=== PATIENT | female | born 1960 | race Caucasian/White ===

== ENCOUNTER → 2016-12-06 | Outpatient (CLI) | payer OTHER ==
[~2016-12-06] MED LIST: ALLOPURINOL300 MG PO; LEXAPRO20 MG PO; LOPRESSOR50 MG PO
== END | disposition home or self-care (01) ==
LOC: MAMMO 14:17
DX: Z12.31 Encounter for screening mammogram for malignant neoplasm of breast (principal)

== ENCOUNTER 2017-03-14 10:24 | Emergency (ER) | payer OTHER ==
[~2017-03-14] VITALS: Ht 177.8 cm; Wt 99.8 kg
[2017-03-14 10:33] VITALS: BP 143/70
[2017-03-14] MEDS ORDERED: SEPTDS PO (12:53)
== END 2017-03-14 13:53 | disposition home or self-care (01) ==
LOC: ED 10:24
DX: L03.116 Cellulitis of left lower limb (principal); F17.200 Nicotine dependence, unspecified, uncomplicated; F10.10 Alcohol abuse, uncomplicated; Z79.899 Other long term (current) drug therapy

== ENCOUNTER 2018-05-03 16:36 | Inpatient (IN) | payer OTHER ==
--- NOTE | ~2018-05-03 | EKG ---
[place], [place] ELECTROCARDIOGRAM REPORT NAME: CLIF AGEE UNIT #: [id number] ROOM: 407 DOCTOR: EPIPHANY DRAFT REPORT BIRTHDATE: [birth year] [facility] Test Date: 2018-05-03 Test Time: 16:40:59 Pat Name: CLIF AGEE Department: Room: 407 Gender: F Crnp: Erika Piedra : 1960 Requested By: KAMI VALVERDE DNP Order Number: [id number] Reading MD: Ezio Méndez MD Measurements Intervals [place] Rate: 140 P: -80 DE: 97 QRS: 55 QRSD: 94 T: -9 QT: 307 QTc: 469 Interpretive Statements Sinus or ectopic atrial tachycardia Repol abnrm suggests ischemia, inferior leads Borderline ST elevation, anterolateral leads Baseline wander in lead(s) III,aVF,V4,V5 Electronically Signed On 05-04-2018 8:44:26 PST by Ezio Méndez MD CM:EKGRPT:ELECTROCARDIOGRAM REPORT [id number] KAMI VALVERDE DNP EPIPHANY DRAFT REPORT KAMI VALVERDE DNP
--- NOTE | ~2018-05-03 | CON ---
[place], [place] REPORT OF CONSULTATION [id number] UN[facility] #: [id number] ROOM: 407 DOCTOR: HERI GRIJALVA MD BIRTHDATE: [birth year] DOS: 05/04/2018 HISTORY OF PRESENT ILLNESS: This is a 58-year-old -[place] woman with a history of essential hypertension, anxiety, gout and atrial fibrillation. In 2016, she had cryoablation done and had not had any symptoms until now. She has never had a heart attack, stroke, COPD, cancer, kidney problems, GERD or GI problems. She drinks socially, but does not use tobacco products and no illicit drugs. FAMILY HISTORY: Positive for coronary artery disease particularly in father. She was admitted to the hospital because of palpitations. She felt her heart was beating irregularly. She had little heartburn and had slight lightheadedness as well, but no chest pain, loss of consciousness, any swelling in the legs, orthopnea or neurological symptoms. MEDICATIONS: At home, allopurinol 300 daily, Lexapro 20 daily and metoprolol 50 mg b.i.d. PHYSICAL EXAMINATION: GENERAL: This revealed the patient is very pleasant, alert. She is tall, mildly overweight. No anemia, thyromegaly or finger clubbing. She was not jaundiced or cyanotic. VITAL SIGNS: Pulse is irregular at 66 beats per minute, blood pressure 118/80. NECK: Normal JVP. AJR is positive. No bruit in the neck. HEART: There is no cardiomegaly, no murmurs were present. She had excellent pedal pulses and no edema in lower extremities. Mild varicosities were seen. RESPIRATORY: Lungs were clear to percussion and auscultation. She was not tachypneic. ABDOMEN: No bruit. Bowel sounds are normal. There was no organomegaly. First ECG demonstrated atrial flutter with 2:1 AV conduction and after IV Cardizem drip, heart rate slowed down and she went into atrial fibrillation, rate is now well controlled. IV Cardizem was discontinued yesterday and she was given 50 mg of Lopressor instead of 25 b.i.d. RECOMMENDATIONS: She does have somewhat increased CHADS2 score, so I think it is claire to restart her on Xarelto 20 mg daily which she had taken previously and dose of metoprolol 50 b.i.d. seems to be controlling her rate. I discussed this case with Dr. Julio and from my point of view, she can be discharged home. I will see her in the office in 2 weeks. If she has remains in atrial fibrillation, then electrical cardioversion will be attempted and I would be inclined to start her on an antiarrhythmic drug at that time. I thank you for this consult. [place], [place] REPORT OF CONSULTATION NAME: CLIF AGEE Wilma UNIT #: [id number] ROOM: 407 DOCTOR: HERI GRIJALVA MD BIRTHDATE: [birth year] HERI GRIJALVA MD CM:CONSTR:REPORT OF CONSULTATION 1116 05/14/18 1053 interface
--- NOTE | ~2018-05-03 | EKG ---
[place], [place] ELECTROCARDIOGRAM REPORT NAME: CLIF AGEE UNIT #: [id number] ROOM: 407 DOCTOR: EPIPHANY DRAFT REPORT BIRTHDATE: [birth year] [facility] Test Date: 2018-05-03 Test Time: 22:43:12 Pat Name: CLIF AGEE Department: Room: 407 Gender: F Evp And Chief Operating Officer: Ezio Stephens : 1960 Requested By: KAMI VALVERDE DNP Order Number: [id number] Reading MD: Ezio Méndez MD Measurements Intervals [place] Rate: 76 P: IA: QRS: 59 QRSD: 92 T: 42 QT: 403 QTc: 454 Interpretive Statements Atrial fibrillation Borderline low voltage, extremity leads Compared to earlier ECG this date Atrial fibrillation with controlled response has replaced SVT Electronically Signed On 05-04-2018 9:00:37 PST by Ezio Méndez MD CM:EKGRPT:ELECTROCARDIOGRAM REPORT 0900 KAMI VALVERDE DNP EPIPHANY DRAFT REPORT KAMI VALVERDE DNP
--- NOTE | ~2018-05-03 | EKG ---
[place], [place] ELECTROCARDIOGRAM REPORT NAME: CLIF AGEE UNIT #: [id number] ROOM: 407 DOCTOR: EPIPHANY DRAFT REPORT BIRTHDATE: [birth year] [facility] Test Date: 2018-05-03 Test Time: 19:54:51 Pat Name: CLIF AGEE Department: Room: 407 Gender: F Digital Marketer: Ezio Stephens : 1960 Requested By: KAMI VALVERDE DNP Order Number: [id number] Reading MD: Ezio Méndez MD Measurements Intervals [place] Rate: 138 P: 99 VT: 113 QRS: 44 QRSD: 152 T: -4 QT: 315 QTc: 478 Interpretive Statements Sinus tachycardia Probable left ventricular hypertrophy No change from earlier ECG this date Electronically Signed On 05-04-2018 8:51:12 PST by Ezio Méndez MD CM:EKGRPT:ELECTROCARDIOGRAM REPORT [id number] KAMI VALVERDE DNP EPIPHANY DRAFT REPORT KAMI VALVERDE DNP
[~2018-05-03 16:36] MED LIST changes: +LOPRESSOR25 MG PO; -LOPRESSOR50 MG PO; +SEPTDS PO
[2018-05-03 16:42] VITALS: BP 160/94
[2018-05-03 17:05] LABS: BASO % 0.6 % (0.0-1.0); EOS # 0.1 10*3/uL (0.0-0.4); EOS % 0.9 % (1.0-4.0); HEMATOCRIT 42.2 % (37.0-47.0); HEMOGLOBIN 14.4 g/dl (12.0-16.0); LYMPH # 2.8 10*3/uL (1.3-4.4); LYMPH % 42.7 % (27.0-41.0); MEAN CELL VOLUME 91.5 fl (81.0-99.0); MEAN CORPUSCULAR HGB 31.2 pg (27.0-31.0); MEAN CORPUSCULAR HGB CONC 34.1 g/dl (33.0-37.0); MONO # 0.6 10*3/uL (0.1-1.0); MONO % 8.6 % (3.0-9.0); PLATELET COUNT AUTOMATED 233 10*3/uL (130-400); RED BLOOD COUNT 4.61 10*6/uL (4.10-5.10); RED CELL DISTRI WIDTH 12.5 % (0-14.5); WHITE BLOOD COUNT 6.5 10*3/uL (4.8-10.8)
[2018-05-03 17:14] LABS: ACT PARTIAL THROMBO TIME 24.4 SECONDS (20.8-31.5)
[2018-05-03 17:22] LABS: ALBUMIN 3.9 gm/dl (3.1-4.5); ALKALINE PHOSPHATASE 85 U/L (45-117); BUN 12 mg/dl (7-24); CHLORIDE 108 mmol/L (98-107); CREATININE 0.75 mg/dL (0.55-1.02); POTASSIUM 3.9 mmol/L (3.5-5.1); SGOT/AST 24 IU/L (3-35); SGPT/ALT 29 U/L (12-78); SODIUM 143 mmol/L (136-145); TOTAL PROTEIN 8.1 gm/dL (6.4-8.2)
[2018-05-03 17:25] LABS: TROPONIN I < 0.015 ng/ml (<0.045)
[2018-05-03 17:29] VITALS: BP 142/93
[2018-05-03 17:41] VITALS: BP 124/97
--- NOTE | 2018-05-03 18:12 | NUR ---
2ND DOES OF IV LOPRESSOR 5 MG GIVEN WITH NO CHANGE IN HEARTRATE. MONITOR ST 130'S. PT STATES SHE HAS BEEN DRINKING ALOT OF FLUIDS.BUN/CREAT WNL.---DILLON CONNELL RN
[2018-05-03 18:13] VITALS: BP 122/92
[2018-05-03 18:52] VITALS: BP 126/94
--- NOTE | 2018-05-03 19:24 | NUR ---
no change IN PT'S HEARTRATE AFTER IV CARDIZEM BOLUS AND IV CARDIZEM DRIP BEING STARTED (SEE EMAR). REPORT TO JEREMIE PABLO AT THIS TIME AND SHE IS NOTIFING DR DAVEY OF THESE FINDINGS.---DILLON CONNELL RN
--- NOTE | 2018-05-03 19:31 | NUR ---
DR DAVEY INFORMED OF PATIENTS HEART RATE STILL BEING 139 ON THE MONITOR.. I WAS INSTRUCTED TO TITRATE THE CARDIZEM FROM 5 TO 10..
[2018-05-03 20:20] VITALS: BP 110/72
--- NOTE | 2018-05-03 20:20 | NUR ---
A 58, admitted to 4E, under the services of AYANNA Card DO with a diagnosis of ATRIAL FLUTTER WITH RAPID VENTRICULAR RESPONSE. Chief complaint is SENT BY PCP FOR ABNORMAL EKG. Patient arrived via stretcher from ER. Monitor applied. Initial assessment completed. Vital signs taken and recorded. AYANNA CARD DO notified of admission to the unit. Orders received. See assessment for past medical history, medications and allergies. Patient and/or family oriented to unit. CLIF WEST
[2018-05-03] MEDS ORDERED: ASPIRIN CHEWABL81 MG PO (20:32)
--- NOTE | 2018-05-03 23:08 | NUR ---
DR ZAMBRANO NOTIFIED OF PT'S HR 60'S, CARDIZEM DRIP AT 10MG/HR WITH ORDER FOR HOME METOPROLOL. DR MAR HOLD CARDIZEM DRIP AND GIVE METOPROLOL.
--- NOTE | 2018-05-03 23:48 | NUR ---
DR GRIJALVA NOTIFIED OF CONSULT. STATES HE WILL SEE PT IN THE MORNING.
[2018-05-04] VITALS: BP 104/59
[2018-05-04 06:40] LABS: BASO % 0.6 % (0.0-1.0); EOS # 0.1 10*3/uL (0.0-0.4); EOS % 1.2 % (1.0-4.0); HEMATOCRIT 39.5 % (37.0-47.0); HEMOGLOBIN 13.6 g/dl (12.0-16.0); LYMPH # 3.4 10*3/uL (1.3-4.4); LYMPH % 51.9 % (27.0-41.0); MEAN CELL VOLUME 90.2 fl (81.0-99.0); MEAN CORPUSCULAR HGB 31.1 pg (27.0-31.0); MEAN CORPUSCULAR HGB CONC 34.4 g/dl (33.0-37.0); MEAN PLATELET VOLUME 10.2 fl (9.6-12.3); MONO # 0.5 10*3/uL (0.1-1.0); MONO % 7.7 % (3.0-9.0); NEUT # 2.5 10*3/uL (2.3-7.9); NEUT % 38.4 % (47.0-73.0); PLATELET COUNT AUTOMATED 210 10*3/uL (130-400); RED BLOOD COUNT 4.38 10*6/uL (4.10-5.10); RED CELL DISTRI WIDTH 12.4 % (0-14.5); WHITE BLOOD COUNT 6.6 10*3/uL (4.8-10.8)
[2018-05-04 06:53] LABS: ALBUMIN 3.2 gm/dl (3.1-4.5); BUN 11 mg/dl (7-24); CHLORIDE 108 mmol/L (98-107); SODIUM 143 mmol/L (136-145)
[2018-05-04 07:02] LABS: ALKALINE PHOSPHATASE 64 U/L (45-117); CHOLESTEROL 165 mg/dL (<200); CREATININE 0.62 mg/dL (0.55-1.02); FREE T4 1.22 ng/dl (0.76-1.46); HDL CHOLESTEROL 57 mg/dl (40-60); LDL CHOLESTEROL 91 mg/dL (9-159); SGOT/AST 17 IU/L (3-35); SGPT/ALT 24 U/L (12-78); THYROID STIM HORMONE (HS) 0.681 uIU/ml (0.358-4.75); TOTAL PROTEIN 7.3 gm/dL (6.4-8.2); TRIGLYCERIDES 86 mg/dl (<150); VLDL CHOLESTEROL 17 mg/dL (6-40)
[2018-05-04 08:00] VITALS: BP 118/80
--- NOTE | 2018-05-04 08:43 | NUR ---
PATIENT'S HR BACK UP TO 130'S-140'S AFIB AT THIS TIME WHEN PATIENT GOT UP TO USE BATHROOM. NOTIFIED & RECEIVED ORDERS.
--- NOTE | 2018-05-04 09:00 | NUR ---
Gill Box Operator in to talk to patient. Patient states lives at home with family. There are few steps in the home. Physician: gregor rascon [facility]acy: [facility] Home health services: none Patient's level of ADLs: INDEPENDENT Patient has working utilities: all working DME: none Follow-up physician's appointment after d/c: will be made by hospitalist nurse director upon discharge Does patient want to access PORTAL?: no Discharge plan discussed with patient, patient states she lives at home, she is independent in adls and ambulation. patient states she drives, she also stated she will be returning home when able and denies any home needs. MYNOR PRITCHARD
[2018-05-04] MEDS ORDERED: METOPROLOL TART50 M1 PO (11:45)
[2018-05-04] MEDS ORDERED: XARE20MG PO (11:45)
[2018-05-04 12:00] VITALS: BP 118/63
--- NOTE | 2018-05-04 13:08 | NUR ---
Discharge instructions reviewed with patient/family. Patient receptive and verbalizes understanding. Follow-up care arranged. Written instructions given to patient/family. PATIENT AMBULATORY OFF FLOOR WITH SISTER. HEPLOCK DISCONTINUED. TIRE MOLD TESTER REMOVED. ZORAIDA MONTERO
== END 2018-05-04 13:00 | disposition home or self-care (01) | DRG 310 ==
LOC: ED 16:36 → 4E 18:48 → EDHOLD 18:48 → 4E 19:28
PROVIDERS: Family Medicine; Nurse Practitioner Family; ADMIT Internal Medicine
DX: I48.92 Unspecified atrial flutter (principal); E87.8 Other disorders of electrolyte and fluid balance, not elsewhere classified; K21.9 Gastro-esophageal reflux disease without esophagitis; D72.810 Lymphocytopenia; F41.9 Anxiety disorder, unspecified; F17.200 Nicotine dependence, unspecified, uncomplicated; F10.10 Alcohol abuse, uncomplicated; M10.9 Gout, unspecified; I10 Essential (primary) hypertension; I48.91 Unspecified atrial fibrillation; Z83.3 Family history of diabetes mellitus; Z79.82 Long term (current) use of aspirin; Z82.49 Family history of ischemic heart disease and other diseases of the circulatory system; Z71.6 Tobacco abuse counseling

== ENCOUNTER → 2022-11-08 | Outpatient (CLI) | payer OTHER ==
[~2022-11-08] MED LIST changes: +ASPIRIN CHEWABL81 MG PO; +METOPROLOL TART50 M1 PO; +XARE20MG PO
[2022-11-08 12:07] LABS: ALKALINE PHOSPHATASE 85 U/L (46-116); BUN 7 mg/dl (9-23); CHLORIDE 106 mmol/L (98-107); POTASSIUM 5.1 mmol/L (3.4-5.1); SGPT/ALT 14 U/L (10-49); TOTAL PROTEIN 7.8 gm/dL (6.0-8.0)
== END | disposition home or self-care (01) ==
LOC: LAB 10:57
PROVIDERS: ATTEND Orthopaedic Surgery
DX: R53.83 Other fatigue (principal); M25.562 Pain in left knee

== ENCOUNTER → 2022-12-14 | Outpatient (CLI) | payer OTHER | END | disposition home or self-care (01) | LOC: MAMMO 09:00 | PROVIDERS: ATTEND Family Medicine | DX: Z12.31 Encounter for screening mammogram for malignant neoplasm of breast (principal) ==

== ENCOUNTER 2023-07-04 07:39 | Emergency (ER) | payer OTHER ==
[~2023-07-04] VITALS: Ht 175.2 cm; Wt 99.8 kg
[2023-07-04] MEDS ORDERED: ALPRAZOLAM0.5 M3 PO (08:01)
[2023-07-04] MEDS ORDERED: OXYCODONE-ACET1 EAC3 PO (08:02)
[2023-07-04 08:19] LABS: BASO % 0.9 % (0.0-1.0); EOS # 0.1 10*3/uL (0.0-0.4); EOS % 1.9 % (1.0-4.0); LYMPH # 2.1 10*3/uL (1.3-4.4); LYMPH % 44.3 % (27.0-41.0); MEAN CORPUSCULAR HGB 28.6 pg (27.0-31.0); MEAN CORPUSCULAR HGB CONC 31.1 g/dl (33.0-37.0); MEAN PLATELET VOLUME 9.5 fl (9.6-12.3); MONO # 0.4 10*3/uL (0.1-1.0); MONO % 7.5 % (3.0-9.0); NEUT # 2.1 10*3/uL (2.3-7.9); NEUT % 45.2 % (47.0-73.0); PLATELET COUNT AUTOMATED 189 10*3/uL (130-400); RED BLOOD COUNT 4.13 10*6/uL (4.10-5.10); RED CELL DISTRI WIDTH 14.8 % (0-14.5); WHITE BLOOD COUNT 4.7 10*3/uL (4.8-10.8)
[2023-07-04 08:37] LABS: BUN 15 mg/dl (9-23); CHLORIDE 106 mmol/L (98-107); POTASSIUM 4.3 mmol/L (3.4-5.1)
[2023-07-04 12:04] VITALS: BP 132/52
[2023-07-04] MEDS ORDERED: Ketorolac Tromethamine 30 MG/ML VIAL IM ONE (12:25)
[2023-07-04] MEDS ORDERED: NAPROXEN250 MG PO (12:31)
== END 2023-07-04 12:40 | disposition home or self-care (01) ==
LOC: ED 07:39
PROVIDERS: Internal Medicine
DX: S80.862A Insect bite (nonvenomous), left lower leg, initial encounter (principal); E83.42 Hypomagnesemia; I12.9 Hypertensive chronic kidney disease with stage 1 through stage 4 chronic kidney disease, or unspecified chronic kidney disease; N18.31 Chronic kidney disease, stage 3a; M10.9 Gout, unspecified; I48.91 Unspecified atrial fibrillation; Z98.890 Other specified postprocedural states; F17.200 Nicotine dependence, unspecified, uncomplicated; W57.XXXA Bitten or stung by nonvenomous insect and other nonvenomous arthropods, initial encounter; Y93.89 Activity, other specified; Y92.009 Unspecified place in unspecified non-institutional (private) residence as the place of occurrence of the external cause; Y99.8 Other external cause status